=== PATIENT | female | born 1995 | race Caucasian/White ===

== ENCOUNTER 2017-09-07 01:05 | Emergency (ER) | payer MEDICAID ==
[~2017-09-07] VITALS: Ht 149.9 cm; Wt 67.7 kg
[2017-09-07 04:23] LABS: CLARITY URINE CLEAR (CLEAR); COLOR URINE YELLOW (YELLOW); KETONES URINE NEGATIVE (NEGATIVE); LEUKOCYTE ESTERASE URINE 1+ (NEGATIVE); NITRITE URINE NEGATIVE (NEGATIVE); OCCULT BLOOD URINE NEGATIVE (NEGATIVE); PROTEIN URINE NEGATIVE (NEGATIVE); SPECIFIC GRAVITY URINE 1.017 (1.005-1.030)
[2017-09-07 07:25] VITALS: BP 106/68
== END 2017-09-07 07:27 | disposition home or self-care (01) ==
LOC: ER 01:18
DX: B00.9 Herpesviral infection, unspecified (principal); F12.10 Cannabis abuse, uncomplicated
CPT/HCPCS: 81003; 81025; 99283